=== PATIENT | female | born 1995 | race Caucasian/White ===

== ENCOUNTER → 2024-01-15 13:31 | Outpatient (REF) | payer OTHER, SELFPAY | LOC: HWRAD 13:31 | PROVIDERS: ATTENDING PHYSICIAN Chiropractor; FAMILY PHYSICIAN Physician Assistant | DX: M54.6 Pain in thoracic spine (principal) | CPT/HCPCS: 72072 ==

== ENCOUNTER 2024-09-22 06:29 | Day surgery (SDC) | payer OTHER, SELFPAY ==
[2024-09-22] VITALS (11 sets, daily range): BP systolic 101–113; BP diastolic 63–79; BMI 25.0
[2024-09-22 09:19] LABS: Hematocrit 33.8 % (37.0-47.0); Hemoglobin 12.4 g/dL (12.0-16.0)
[2024-09-22] MEDS: VIBRAMYCIN 270 MG IV (09:39)
[2024-09-22] MEDS: TYLENOL 1000 MG PO (09:39)
[2024-09-22] MEDS: CELEBREX 200 MG PO (09:45)
== END 2024-09-22 13:14 | disposition home or self-care (01) ==
LOC: SDS 06:29
PROVIDERS: ATTENDING PHYSICIAN Obstetrics & Gynecology
DX: O02.1 Missed abortion (principal)
CPT/HCPCS: 59820; 88305; 85014; 85018; 86850; 86900; 86901

== ENCOUNTER 2025-01-13 13:38 | Emergency (ER) | payer OTHER, SELFPAY ==
[2025-01-13 13:48] VITALS: BP 139/82
--- NOTE | 2025-01-13 16:51 | ED.GENMED ---
History of Present Illness
General
Chief Complaint: Numbness
Time Seen by Provider: 01/13/25 16:10
History of Present Illness
History of Present Illness:
29-year-old female history of benign pituitary tumor presenting with lower lip numbness starting 2 days ago. Patient states that initially started out as her lower lip but now is radiating to her left chin. Patient states that today she started
developing pain anterior to her left ear. Patient denies any weakness, visual changes, or speech difficulty. Patient states that she was seen by her dentist where she had a benign exam was recommended come to the emergency department or go to an
oral surgeon. Patient denies any tooth pain. Patient states is never happened before. Patient states that she had episodes of nausea, vomiting, diarrhea 1 week ago which she thought was food poisoning, resolved within 12 hours and asymptomatic
since.
Phy Exam
Physical Exam
Physical Exam:
General: Alert, no acute distress
Head: NCAT. no tenderness to palpation to left cheek
Eyes: clear conjunctiva, PERRLA, EOMI.
HEENT: TMs clear bilaterally. No tenderness palpation to any teeth. Good dentition with no cavities. No gingival swelling
Neck: supple
Cardiac: regular rate and rhythm, no murmur
Lungs: clear to auscultation bilaterally. No wheezes, rales, or rhonchi. Speaking full unlabored sentences. No respiratory distress.
Abdomen: soft, nondistended nontender. No rebound or guarding.
MSK: no lower extremity edema bilaterally. No deformity
Skin: warm, dry
Neuro: Alert and oriented x3. Decreased sensation to left chin compared to right side of chin. Normal sensation to right chin and upper lip. Otherwise cranial nerves II through XII grossly intact no focal deficits. 5-5 strength bilateral upper
and lower extremities. Normal finger-nose and [id number]. Speaking full sentences with no slurred speech or expressive aphasia.
Course
Orders/Labs/Results
Orders:
Orders
01/13/25 17:05
BMP [Basic Metabolic Panel] Urgent
CBC/With Diff [Complete Blood Count/With Diff] Urgent
Abnormal Lab Results
01/13/25
17:05
RBC 4.07 L 10^6/uL
(4.20-5.40)
MCH 32.2 H pg
(27.0-31.0)
Sodium 134 L mmol/L
(135-145)
01/13/25 17:05
01/13/25 17:05
Vital Signs
Initial and Last Documented VS:
Initial Vital Signs
Temp Pulse Resp BP Pulse Ox
98.2 F 68 20 139/82 98
01/13/25 13:48 01/13/25 13:48 01/13/25 13:48 01/13/25 13:48 01/13/25 13:48
Last Documented Vital Signs
Temp Pulse Resp BP Pulse Ox
98.3 F 71 18 106/71 100
01/13/25 18:19 01/13/25 18:19 01/13/25 18:19 01/13/25 18:19 01/13/25 18:19
MDM/Problems Addressed
Differential Diagnosis Includes:
Electrolyte abnormality, trigeminal neuralgia, TMJ
MDM/Problems Addressed:
Results reviewed. Electrolytes within normal limits. No anemia. Given no tenderness/pain with palpation over trigeminal distribution, lower suspicion. Possible TMJ given reported pain to TMJ area. Discussed results with patient at bedside.
Advised to follow up with PCP. Discussed return precautions. Pt expressed verbal understanding
*Critical Care Note
Total Time (30-74mins, 75-104mins- exclusive of procedures): Not Applicable
ED Attending Note
-
Portions of this chart may have been created with voice recognition software.� Occasional wrong word or��sound alike� substitutions may have occurred due to the inherent limitations of voice recognition software.
Discharge Plan
Departure
Patient Disposition: Home (Routine Discharge)
Date of Disposition: 01/13/25
Time of Disposition: 18:17
Patient with high blood pressure during this ER visit?: Yes
Discharge Problem:
Lip numbness
Instructions: Paresthesia (DC), BLOOD PRESSURE
Prescriptions:
No Action
No Current Medications
0
Referrals:
Paula Ascencio PA-C [Family Provider] -
Activity Restrictions/Additional Instructions:
Follow up with primary care doctor next week
Take ibuprofen 800mg every 8 hours with food as needed for pain
Return to the emergency department for focal weakness, visual changes or new/worsening symptoms
Interventions
Interventions:
*Risk Screen - Suicide Last Done: 01/13/25 17:31
*General Assessment Last Done: 01/13/25 13:48
*Neglect/Abuse Screening Last Done: 01/13/25 17:31
*ED- Fall Risk Assessment Last Done: 01/13/25 17:31
*ED COVID-19 Vaccine History Last Done: 01/13/25 17:31
*Nursing Disposition Last Done: 01/13/25 18:37
ED- Neurological Assessment Last Done: 01/13/25 17:31
Discharge Date and Time
Discharge Date/Time: 01/13/25 18:42
Print Language: HUNGARIAN
[2025-01-13 17:12] LABS: % Basophils 0.2 % (0-2); % Eosinophils 1.1 % (0-6); % Immature Granulocytes 0.2 % (0-0.5); % Lymphocytes 28.5 % (20.5-51.1); Absolute Eosinophils 0.1 10^3/uL (0-0.7); Absolute Lymphocytes 1.6 10^3/uL (1.2-3.4); Absolute Monocytes 0.5 10^3/uL (0.1-0.6); Absolute Neutrophils 3.5 10^3/uL (1.4-6.5); Hematocrit 37.4 % (37.0-47.0); Hemoglobin 13.1 g/dL (12.0-16.0); Mean Corpuscular Hgb 32.2 pg (27.0-31.0); Mean Corpuscular Volume 91.9 fL (81.0-99.0); Mean Platelet Volume 9.2 fL (7.4-10.4); Nucleated Red Blood Cells % 0 %; Platelet Count 230 10^3/uL (130-400); Red Blood Cell Count 4.07 10^6/uL (4.20-5.40); Red Cell Dist. Width 11.7 % (11.5-14.5); White Blood Cell Count 5.6 10^3/uL (4.8-10.8)
[2025-01-13 17:36] LABS: Blood Urea Nitrogen 13 mg/dl (7-17); Calcium 9.6 mg/dl (8.4-10.2); Carbon Dioxide 25 mmol/L (22-30); Chloride 101 mmol/L (98-107); Glucose 81 mg/dl (70-99); Potassium 4.2 mmol/L (3.5-5.1); Sodium 134 mmol/L (135-145); eGFR > 60.00
[2025-01-13 18:19] VITALS: BP 106/71
== END 2025-01-13 18:42 | disposition home or self-care (01) ==
LOC: EMR 13:38
PROVIDERS: EMERGENCY PHYSICIAN Emergency Medicine; FAMILY PHYSICIAN Physician Assistant
DX: R20.0 Anesthesia of skin (principal); R03.0 Elevated blood-pressure reading, without diagnosis of hypertension
CPT/HCPCS: 99283; 80048; 85025

== ENCOUNTER 2025-03-29 06:23 | Day surgery (SDC) | payer OTHER, SELFPAY ==
--- NOTE | 2025-03-28 11:54 | HPS.HSE ---
Family Physician
-
Family Physician: NOT KNOW UNKNOWN - PT DOES
Chief Complaint
-
MAB
History of Present Illness
Patient is a 29yo who presents for scheduled D&E. She had a routine OB appointment on 03/28 and no FHTs were detected by Doppler. US showed a missed with a fetus measuring 8 weeks 4 days with no FHTs. Patient denied cramping or vaginal
bleeding. Patient desires surgical management.
PMHx: benign pituitary tumor
Meds: denies
Surghx: D&E
NKDA
Socialhx: denies tobacco, etoh or illicit drug use
Famhx: mother w/ HTN, maternal grandmother w/ osteoporosis
OBHx: MABx1
Medical History
Past Medical History
Past Medical History: Reports Other
Additional Past Medical History:
benign pituitary tumor
Past Surgical History: Reports Other
Additional Past Surgical History:
D&E
Social History
Tobacco: Non-smoker
Alcohol: None
Drug: None
Family History
Family History: Hypertension
Allergies / Home Medications
Allergies reflects when Allergies were last updated in [facility].
Home Medications with original date entered in [facility]
Allergy/Medication List:
NKDA
Meds: denies
Review of Systems
-
A 12 point ROS was completed and negative except as noted: Yes
Physical Exam
Physical Exam
General: Well Developed and Well Nourished
HEENT: NormoCephalic
Respiratory: Non Labored Respirations
GI: Soft and Non Tender
Skin: Warm and Dry
Neuro: Awake and Alert
Psych: Calm
Impression/Plan
-
IMPRESSION:
Patient is a 29yo with a missed at 8.4 weeks who presents for dilation and evacuation
PLAN:
- Patient was counseled on options of management for a missed including expectant, medical and surgical management. Risks, benefits and alternatives to each were discussed. Patient desires to proceed with surgical management with D&E. She
is scheduled on 03/[address] Pratt. Risks, benefits and alternatives to the procedure were reviewed including bleeding, infection, damage to surrounding structures, incomplete evacuation of products of conception and need for future operations.
Consents were signed. She was consented for a blood transfusion in case of emergency. 200mg Doxycycline IV was ordered to be given within in hour of the procedure. Postoperative expectations were reviewed.
[2025-03-29] VITALS (8 sets, daily range): BP systolic 93–120; BP diastolic 55–79; BMI 25.1
[2025-03-29] MEDS: NORMOSOL-R/PLASMALYTE-A 1000 IV (09:28)
[2025-03-29 09:30] LABS: Hematocrit 34.5 % (37.0-47.0); Hemoglobin 12.4 g/dL (12.0-16.0)
[2025-03-29] MEDS: VIBRAMYCIN 270 MG IV (09:39)
== END 2025-03-29 12:38 | disposition home or self-care (01) ==
LOC: SDS 06:23
PROVIDERS: ATTENDING PHYSICIAN Obstetrics & Gynecology
DX: O02.1 Missed abortion (principal); N85.4 Malposition of uterus
CPT/HCPCS: 59820; 88305; 85014; 85018; 86850; 86900; 86901